=== PATIENT | male | born 1950 | race Caucasian/White ===

== ENCOUNTER 2018-12-07 13:04 | Inpatient (IN) | payer OTHER ==
[~2018-12-07] VITALS: Ht 177.8 cm; Wt 102.1 kg
--- NOTE | ~2018-12-07 | HC ---
[facility] [place] [address] CONSULTATION Name: FÁTIMA AYALA Room #: 350-P [facility] IN M.R.#: [id number] Admission: 12/07/18 ������������������ Attend Phys: Nidhi Browne Discharge: ������������������ Date of : 54 Report #: [id number] THIS REPORT FOR: //name// CC: Lalo Jeffries HISTORY OF PRESENT ILLNESS: The patient is a 68-year-old male well known to myself, the patient of Dr. Pankaj Jeffries, comes in yesterday with an onset of chest discomfort, a band-like sensation radiating to right side of his neck and some shortness of breath. This had occurred at rest. He does not have documented coronary artery disease and I follow him predominantly for paroxysmal AFib, hypertension, and hypercholesterolemia. History of underlying moderate alcohol use, which may have played a role with AFib; although, this has been tampered somewhat. He does note progressive fatigue for the last month or two. The notes an increased shortness of breath over the last few weeks. Not terribly active. Does not regularly exercise. He does maintain anticoagulation with DOAC, Eliquis 5 b.i.d. Other medications were atorvastatin 20, diltiazem 240, olmesartan 40, omeprazole and Ultram as needed. No syncope or presyncope. The troponins are negative. There are nonspecific EKG changes here. The story does sound very suspicious for angina. Prior tobacco user. PAST MEDICAL HISTORY: Positive for paroxysmal AFib, hypertension, reflux, hypercholesterolemia, and moderate alcohol use. SOCIAL HISTORY: He is . Prior tobacco. Moderately heavy alcohol by history. He still works. Moderate amount of caffeine on a daily basis. Only surgery was rotator cuff. ALLERGIES: No known drug allergies. REVIEW OF SYSTEMS: Negative except for stated above and some nocturia. LABORATORY DATA: Sodium is 136, potassium 4.0, and creatinine 1.1. Troponins are negative. SGOT is 45. Lipids have been; they were not repeated here. Troponin is negative. H and H is 14 and 43. Chest x-ray, no acute process, borderline cardiomegaly. PHYSICAL EXAMINATION: VITAL SIGNS: Blood pressure is 140/80 and pulse 60. HEENT: Eyes reveal xanthelasmas. Pharynx is clear. NECK: Shows preserved upstrokes without JVD or bruits. LUNGS: Slight prolonged expiratory phase, but clear. CARDIAC: Regular rate and rhythm, S1, S2. ABDOMEN: Soft, nontender. EXTREMITIES: Reveal no edema. Distal pulses diminished, but intact. NEUROLOGIC: Nonfocal. SKIN: Warm and dry without xanthoma or ulcer. MUSCULOSKELETAL: Mild arthritic changes are noted. I did not ambulate him. [facility] [address] [place] [address] CONSULTATION Name: FÁTIMA AYALA Room #: 350-P [facility] IN M.R.#: [id number] Admission: 12/07/18 ������������������ Attend Phys: Nidhi Browne Discharge: ������������������ Date of : 54 Report #: [id number] ASSESSMENT: 1. Chest pain, suspect unstable angina. 2. Hypertension. 3. Hypercholesterolemia. 4. Paroxysmal atrial fibrillation. RECOMMENDATIONS AND PLAN: We have held anticoagulation since yesterday. I would proceed to the catheterization lab for right and left heart catheterization as his dyspnea and shortness of breath is also playing a role. There has been no recent travel to suggest any potential for PE. There has been no lower extremity swelling. I discussed this above with the patient and his . Dr. Jeffries is also in agreement. We will continue to hold anticoagulation and proceed to the carpenter labor supervisor in the a.m. Risks, benefits, alternatives were discussed. ��������������������������������������������� ���������������������������������������� By: ��������������������������������������������� 1059 1526 Carl Burns MD, FACC /nt
--- NOTE | ~2018-12-07 | H ---
[facility] [place] [address] HISTORY AND PHYSICAL Name: FÁTIMA AYALA Room #: 350-P ADM IN .R.#: [id number] Admission: 12/07/18 ������������������ Attend Phys: Nidhi Browne Discharge: ������������������ Date of : 54 Report #: [id number] THIS REPORT FOR: //name// CC: Lalo Jeffries DATE OF SERVICE: 12/07/2018 CHIEF COMPLAINT: A 68-year-old male with tightness of the chest and shortness of air. HISTORY OF PRESENT ILLNESS: This is a patient with a marked change in his exercise tolerance over the last 48 hours with marked increase in shortness of breath with small short distance of walking along with intermittent chest tightness and some of these symptoms have occurred at rest. He also had some associated nausea. PAST MEDICAL HISTORY: Noteworthy for atrial fibrillation. PAST MEDICAL HISTORY: Shoulder surgery on the right. He has had a previous sleep study that confirmed obstructive sleep apnea and uses CPAP. MEDICATIONS LIST: Includes aspirin, atorvastatin, Cardizem, Benicar, Prilosec, Eliquis, and Ultram. ALLERGIES: No known drug allergies. FAMILY HISTORY: Noncontributory. SOCIAL HISTORY: He is fully active. No smoking at this time. Social alcohol intake. REVIEW OF SYSTEMS: Otherwise negative. PHYSICAL EXAMINATION: GENERAL: Shows him to be in no distress. His is at the bedside. He is having no symptoms at this time. HEENT: Otherwise negative. NECK: Supple without thyromegaly or adenopathy. CHEST: Clear. CARDIOVASCULAR: Showed regular rate and rhythm without murmur. ABDOMEN: Soft and nontender without hepatosplenomegaly. EXTREMITIES: Negative. NEUROLOGIC: Normal. LABORATORY DATA: Laboratory parameters showed no evidence of myocardial infarction. [facility] [address] [place] [address] HISTORY AND PHYSICAL Name: FÁTIMA AYALA Room #: 350-P ADM IN .R.#: [id number] Admission: 12/07/18 ������������������ Attend Phys: Nidhi Browne Discharge: ������������������ Date of : 54 Report #: [id number] ASSESSMENT AND PLAN: 1. This is a patient with symptoms suggesting unstable angina. There probably is a component of anxiety associated with this. At this point, I do not think this is a pulmonary situation and we will need to make sure that we evaluate for unstable angina, and at this point, I favor heart catheterization. 2. Paroxysmal atrial fibrillation with underlying anticoagulation. 3. Gastroesophageal reflux disease. 4. Anxiety. ��������������������������������������������� ���������������������������������������� By: ��������������������������������������������� 0724 0755 Lalo Jeffries MD /nt
[~2018-12-07 13:04] MED LIST: ACIPHEX 20 MG T20 MG PO; ASPIRIN81 M2 PO; BENICAR20 MG PO; CARDIZEM CD240 MG PO; ELIQUIS5 MG PO; LIPITOR 20 MG T20 M1 PO; PAROXETINE HCL20 MG PO; PINDOLOL PO; PREDNISONE 10 M10 MG PO; PRILOSEC; PRILOSEC OTC20 MG PO; SAVAYSA30 MG PO; TENORMIN25 MG PO; TENORMIN50 MG PO
[2018-12-07 13:05] VITALS: BP 149/80
[2018-12-07 13:21] LABS: ABSOLUTE NEUTROPHILS 3.3 thou/uL (1.4-8.2); BASOPHILS 0.5 % (0.0-2.0); EOSINOPHILS 0.7 % (0.0-3.0); HEMATOCRIT 43.6 % (42.0-52.0); HEMOGLOBIN 14.9 gm/dL (14.0-18.0); LYMPHOCYTES 28.7 % (24.0-44.0); MCH 33.2 pg (26.0-34.0); MCHC 34.2 g/dL (28.0-37.0); MCV 96.9 fL (80.0-100.0); MONOCYTES 11.3 % (1.0-8.0); PLATELET COUNT 205 thou/uL (150-400); POLYS 58.8 % (36.0-66.0); RDW 13.8 % (10.5-14.5); WBC 5.7 thou/uL (4.0-11.0)
[2018-12-07 13:33] LABS: APTT 32.9 Seconds (24.5-32.8); PROTIME 10.3 Seconds (9.3-11.4)
[2018-12-07 13:42] LABS: ALBUMIN 3.7 g/dL (3.4-5.0); ANION GAP 11 mmol/L (7-16); BUN 10 mg/dL (7-18); CALCIUM 9.4 mg/dL (8.5-10.1); CHLORIDE 102 mmol/L (98-107); CO2 23 mmol/L (21-32); CREATININE 1.1 mg/dL (0.7-1.3); MAGNESIUM 2.1 mg/dL (1.8-2.4); SGOT 45 U/L (15-37); SGPT 40 U/L (30-65); SODIUM 136 mmol/L (136-145); TOTAL BILIRUBIN 0.4 mg/dL (<0.1-1.0); TROPONIN-I <0.06 ng/mL (<0.06)
[2018-12-07 13:49] LABS: GLUCOSE 91 mg/dL (74-106)
[2018-12-07] MEDS ORDERED: ULTRAM 50MG TAB50 MG PO (13:49)
[2018-12-07 16:03] VITALS: BP 135/75
[2018-12-07 16:08] VITALS: BP 143/95
[2018-12-07 16:29] LABS: AMP/METHAMP Negative (Negative); BARBITURATES Negative (Negative); BENZODIAZEPINES Negative (Negative); COCAINE Negative (Negative); METHADONE Negative (Negative); OPIATES POSITIVE (Negative); PCP Negative (Negative)
[2018-12-07 17:07] VITALS: BP 147/66
--- NOTE | 2018-12-07 18:24 | NUR ---
PATIENT ADMITTED TO ROOM AT THIS TIME. HE IS ALERT ORIENTED X4. DOES NOT SEEM TO BE IN PAIN OR DISTRESS. HE DID STATE HE HAD NAUSEA AND PRN ZOFRAN ADMINISTERED. IT WAS EFFECTIVE. ORIENTED TO ROOM. WILL CONT WITH PLAN OF CARE.
[2018-12-07 19:20] VITALS: BP 131/64
[2018-12-08] VITALS: BP 140/77
[2018-12-08 04:00] VITALS: BP 146/85
--- NOTE | 2018-12-08 04:27 | NUR ---
Patient making slow progress towards outcome goals. Vital signs and rhythm stable. Most recent EKG and Troponin normal. IVfluids infusing. Up adlib without difficulty.
[2018-12-08 07:26] VITALS: BP 141/83
[2018-12-08 11:11] VITALS: BP 150/77
--- NOTE | 2018-12-08 13:44 | EKG ---
[place] [address] [address] [facility] [place] [address] ELECTROCARDIOGRAM REPORT Name: SEBASTIÁN AYALA Room #: 350-P ADM IN M.R.#: [id number] ������������������ Admission: 12/07/18 ������������������ Attend Phys: Nidhi Browne Discharge: ������������������ Date of : 54 Report #: [id number] ����������������������������������������������������������������� [id number] THIS REPORT FOR: //name// [facility] ED Test Date: 2018-12-07 Test Time: 13:04:18 Pat Name: SEBASTIÁN AYALA Department: Room: 350 Gender: M Handwriting Expert: ODALIS : 1950 Requested By: Sebastián Agrawal Order Number: [id number] MD: Derek Gilmore Measurements Intervals [place] Rate: 62 P: 37 [place]: 154 QRS: 11 QRSD: 102 T: 6 QT: 407 QTc: 414 Interpretive Statements Sinus rhythm Normal tracing No previous ECG available for comparison Electronically Signed On 12-08-2018 13:44:11 CDT by Derek Gilmore [email or web address] ��������������������������������������������� <ELECTRONICALLY SIGNED> ���������������������������������������� By: Derek Gilmore MD, [facility] ��������������������������������������������� 12/08/18 1344 1304 1304 Derek Gilmore MD, FACC /EPI
--- NOTE | 2018-12-08 13:50 | EKG ---
[place] [address] [address] [facility] [place] [address] ELECTROCARDIOGRAM REPORT Name: FÁTIMA AYALA Room #: 350-P ADM IN M.R.#: [id number] ������������������ Admission: 12/07/18 ������������������ Attend Phys: Nidhi Browne Discharge: ������������������ Date of : 54 Report #: [id number] ����������������������������������������������������������������� [id number] THIS REPORT FOR: //name// [facility] Test Date: 2018-12-07 Test Time: 18:10:55 Pat Name: FÁTIMA AYALA Department: Room: 350 P Gender: M Casting Supervisor: CHRISTIANO : 1950 Requested By: Carl Burns Order Number: [id number] MD: Derek Gilmore Measurements Intervals [place] Rate: 56 P: 43 [place]: 162 QRS: 25 QRSD: 111 T: -1 QT: 440 QTc: 425 Interpretive Statements Sinus rhythm Abnormal R-wave progression, early transition Nonspecific ST and T wave abnormality No previous ECG available for comparison Electronically Signed On 12-08-2018 13:50:01 CDT by Derek Gilmore [email or web address] ��������������������������������������������� <ELECTRONICALLY SIGNED> ���������������������������������������� By: Derek Gilmore MD, [facility] ��������������������������������������������� 12/08/18 1350 1810 09 Derek Gilmore MD, [facility] /EPI
--- NOTE | 2018-12-08 13:59 | EKG ---
[place] [address] [address] [employer] [facility] [place] [address] ELECTROCARDIOGRAM REPORT Name: FÁTIMA AYALA Room #: 350-P ADM IN M.R.#: [id number] ������������������ Admission: 12/07/18 ������������������ Attend Phys: Nidhi Browne Discharge: ������������������ Date of : 54 Report #: [id number] ����������������������������������������������������������������� [id number] THIS REPORT FOR: //name// [facility] Test Date: 2018-12-08 Test Time: 07:37:04 Pat Name: FÁTIMA AYALA Department: Room: 350 P Gender: M Hyperbaric Tech: MADDIE : 1950 Requested By: Carl Burns Order Number: [id number] MD: Derek Gilmore Measurements Intervals [place] Rate: 55 P: 30 [place]: 168 QRS: 7 QRSD: 102 T: -11 QT: 422 QTc: 404 Interpretive Statements Sinus bradycardia Abnormal R-wave progression, early transition Baseline wander in lead(s) V3 No previous ECG available for comparison Electronically Signed On 12-08-2018 13:59:11 CDT by Derek Gilmore [email or web address] ��������������������������������������������� <ELECTRONICALLY SIGNED> ���������������������������������������� By: Derek Gilmore MD, [facility] ��������������������������������������������� 12/08/18 1359 6 Derek Gilmore MD, [facility] /EPI
[2018-12-08 16:05] VITALS: BP 134/77
--- NOTE | 2018-12-08 16:22 | NUR ---
PATIENT CONT TO REST IN ROOM AT THIS TIME. WILL BE HAVING CATH DONE IN AM. SPOKE WITH CARDIOLOGY AND EDUCATION PROVIDED. HE HAS DENIED ANY PAIN AT THIS TIME. STATES THE PAIN IS MILD AND TOLERABLE WITH NO NEED FOR MEDICATION. UP AD CARMEN TO BATHROOM. RESPIRATIONS NON LABORED. WILL CONT WITH PLAN OF CARE.
[2018-12-08 19:30] VITALS: BP 144/74
[2018-12-09 04:00] VITALS: BP 128/69
--- NOTE | 2018-12-09 05:48 | NUR ---
Patient progressing towardfs outcome goals. Vital signs and rhythm stable No c/o nausea. NPO after MN for heart cath. Consent secured by previous nurse. Patient denies any questions at this time. States procedure explained by Dr Burns.IVfluids infusing.
[2018-12-09 09:27] VITALS: BP 136/91
[2018-12-09 11:33] VITALS: BP 147/84
[2018-12-09 16:26] VITALS: BP 147/84
--- NOTE | 2018-12-09 16:34 | NUR ---
ASSUMED CAR EOF PT AT 0700. PT AOX4 ASYMPTOMATIC. DENIES CHEST PAIN. HEART CATH UNREMARKABLE. WAITING ON DISCHARGE ORDERS.
--- NOTE | 2018-12-13 15:31 | CATHLAB ---
[facility] [place] [address] INVASIVE PROCEDURE REPORT Name: FÁTIMA AYALA Room #: 350-P [facility]#: [id number] ������������� Admission: 12/07/18 ������������� Attend Phys: Lalo Knapp Discharge: ��� 12/09/18 ������������� ��� Date of : 54 Date of Service: 12/13/18 1530 �� Report #: [id number] �������� ��������������������������������������������[id number] THIS REPORT FOR: //name// APPROVED REPORT Study performed: 12/09/2018 07:13:10 Patient Details Patient Status: Out-Patient Room #: The patient is a 68 year-old male Event Personnel Carl Burns Multiple Resaw Operator, Bird Cantu RN, Marcelle Pacheco Monitor, Yoav August RTR Scrub Procedures Performed Art Access - R femoral artery* Herbie Access - R femoral vein Right and Left Heart Cath Lt Vent/Cors/Grafts [id number] RLLVCORCAB Aortogram Abdominal Peripheral Angio [id number] Indication Chest pain Procedure Narrative The Right Groin^ was infiltrated with 1% Lidocaine subcutaneous anesthesia. Cardiac outputs were obtained by the Thermal Dilution method. A PINNACLE 6FR Sheath #[id number] sheath was inserted into the RFA 6F^. Coronary angiography was performed using coronary diagnostic catheters. The right coronary system was accessed and visualized with a jr4 catheter. The left coronary system was accessed and visualized with a jl4 catheter. The left ventricle was accessed and visualized with a str. pig catheter. Left ventriculogram was performed in 30 degree projection. Closure device was deployed with a Fr 6f Mynx. Intraoperative Conscious Sedation Sedation start time: 757 Case end Time: 834 Fentanyl 100.0 mcg Versed 2 mg Fluoro Time: 4.18 minutes Dose: DAP 7514.20 cGycm2 Contrast Type and Amount: Omnipaque 90 ml Hemodynamics [facility] [email or web address] [address] INVASIVE PROCEDURE REPORT Name: FÁTIMA AYALA Room #: [address] [place] [address].#: [id number] ������������� Admission: 12/07/18 ������������� Attend Phys: Lalo Knapp Discharge: ��� 12/09/18 ������������� ��� Date of : 54 Date of Service: 12/13/18 1530 �� Report #: [id number] �������� ��������������������������������������������[id number] The right atrial mean pressure is 10 mmHg. The right ventricular pressure is 15 mmHg. The pulmonary artery pressure is 38/14 mmHg with a mean of 23 mmHg. The mean pulmonary capillary wedge pressure is 20 mmHg. The left ventricular pressure is 155/15 mmHg with a mean of mmHg. The cardiac output using thermo method is 6.83 L/min. The cardiac index using thermo method is 3.11 L/min/m2. Conclusion #1 normal left ventricular size and systolic function EF 60% #2 abdominal aortogram reveals no evidence of aneurysm single bilateral renal arteries appear widely patent #3 coronary anatomy reveals essentially a codominant system. There is mild plaquing in all 3 vessels no significant occlusive disease is noted #4 assessment right heart catheterization with cardiac output by thermodilution. See above hemodynamics. Recommendations and plan: Continue aggressive risk factor modification. No indication for coronary intervention. No significant elevation of pulmonary pressures. ��������������������������������������������� <ELECTRONICALLY SIGNED> ���������������������������������������� By: Carl Burns MD, FACC ��������������������������������������������� 12/13/18 1530 1530 1530 Carl Burns MD, FACC /INF
== END 2018-12-09 17:09 | disposition home or self-care (01) | DRG 287 ==
LOC: ER 13:04 → EROBS 14:55 → 3W 14:55 → ENTRNSPT 12-09 16:33 → 3W 12-09 17:09
PROVIDERS: Emergency Medicine; ADMIT Internal Medicine
PROC: B2151ZZ Fluoroscopy of Left Heart using Low Osmolar Contrast (ICD-10-PCS; principal; 2018-12-08)
PROC: 4A023N7 Measurement of Cardiac Sampling and Pressure, Left Heart, Percutaneous Approach (ICD-10-PCS; principal; 2018-12-08)
PROC: B4101ZZ Fluoroscopy of Abdominal Aorta using Low Osmolar Contrast (ICD-10-PCS; principal; 2018-12-08)
PROC: B2111ZZ Fluoroscopy of Multiple Coronary Arteries using Low Osmolar Contrast (ICD-10-PCS; principal; 2018-12-08)
DX: R07.89 Other chest pain (principal); K21.9 Gastro-esophageal reflux disease without esophagitis; E66.9 Obesity, unspecified; I48.0 Paroxysmal atrial fibrillation; I10 Essential (primary) hypertension; E78.00 Pure hypercholesterolemia, unspecified; G47.33 Obstructive sleep apnea (adult) (pediatric); F41.9 Anxiety disorder, unspecified; E78.5 Hyperlipidemia, unspecified; Z79.01 Long term (current) use of anticoagulants; Z87.891 Personal history of nicotine dependence; Z99.81 Dependence on supplemental oxygen; Z79.82 Long term (current) use of aspirin; Z79.899 Other long term (current) drug therapy; Z68.32 Body mass index [BMI] 32.0-32.9, adult
CPT/HCPCS: 10879

== ENCOUNTER → 2019-07-02 | Outpatient (CLI) | payer OTHER ==
[~2019-07-02] MED LIST changes: +ULTRAM 50MG TAB50 MG PO
== END ==
LOC: SJCVC 11:31
DX: I48.91 Unspecified atrial fibrillation (principal); R94.31 Abnormal electrocardiogram [ECG] [EKG]; I25.10 Atherosclerotic heart disease of native coronary artery without angina pectoris; E78.00 Pure hypercholesterolemia, unspecified; I10 Essential (primary) hypertension; D68.59 Other primary thrombophilia; G47.33 Obstructive sleep apnea (adult) (pediatric); K21.9 Gastro-esophageal reflux disease without esophagitis; Z87.891 Personal history of nicotine dependence; Z79.899 Other long term (current) drug therapy; Z99.89 Dependence on other enabling machines and devices

== ENCOUNTER → 2020-01-07 | Outpatient (CLI) | payer OTHER | LOC: SJCVCIMAG 10:47 | PROVIDERS: ATTEND Internal Medicine Cardiovascular Disease | DX: I48.0 Paroxysmal atrial fibrillation (principal); G47.33 Obstructive sleep apnea (adult) (pediatric); D68.59 Other primary thrombophilia; I10 Essential (primary) hypertension; E78.5 Hyperlipidemia, unspecified; K21.9 Gastro-esophageal reflux disease without esophagitis; Z79.899 Other long term (current) drug therapy; Z87.891 Personal history of nicotine dependence; Z99.89 Dependence on other enabling machines and devices ==

== ENCOUNTER → 2020-08-27 | Outpatient (CLI) | payer OTHER | LOC: SJCVC 10:21 | PROVIDERS: ATTEND Internal Medicine Cardiovascular Disease | DX: R94.31 Abnormal electrocardiogram [ECG] [EKG] (principal); G47.33 Obstructive sleep apnea (adult) (pediatric); K21.9 Gastro-esophageal reflux disease without esophagitis; D68.59 Other primary thrombophilia; I48.0 Paroxysmal atrial fibrillation; R42 Dizziness and giddiness; I48.91 Unspecified atrial fibrillation; F41.9 Anxiety disorder, unspecified; Z99.89 Dependence on other enabling machines and devices; Z79.899 Other long term (current) drug therapy; Z87.891 Personal history of nicotine dependence; Z72.89 Other problems related to lifestyle ==

== ENCOUNTER 2020-09-13 10:48 | Emergency (ER) | payer OTHER ==
[~2020-09-13] VITALS: Ht 177.8 cm; Wt 104.3 kg
[2020-09-13] MEDS ORDERED: DILTIAZEM 24HR360 M1 PO (11:18)
[2020-09-13] MEDS ORDERED: CLONAZEPAM 0.50.5 M1 PO (11:19)
[2020-09-13 11:26] LABS: ABSOLUTE NEUTROPHILS 4.8 thou/uL (1.4-8.2); BASOPHILS 0.7 % (0.0-2.0); EOSINOPHILS 0.7 % (0.0-3.0); HEMATOCRIT 43.8 % (42.0-52.0); HEMOGLOBIN 14.8 gm/dL (14.0-18.0); MCH 33.7 pg (26.0-34.0); MCHC 33.7 g/dL (28.0-37.0); MCV 100.1 fL (80.0-100.0); MONOCYTES 8.9 % (1.0-8.0); PLATELET COUNT 206 thou/uL (150-400); POLYS 70.7 % (36.0-66.0); RBC 4.38 mil/uL (4.50-6.00); RDW 13.2 % (10.5-14.5); WBC 6.7 thou/uL (4.0-11.0)
[2020-09-13 11:36] LABS: ANION GAP 11 mmol/L (7-16); BUN 12 mg/dL (7-18); CHLORIDE 104 mmol/L (98-107); CO2 25 mmol/L (21-32); CREATININE 1.2 mg/dL (0.7-1.3); GLUCOSE 100 mg/dL (74-106); POTASSIUM 4.4 mmol/L (3.5-5.1); SODIUM 140 mmol/L (136-145)
[2020-09-13 11:45] LABS: TROPONIN-I <0.06 ng/mL (<0.06)
[2020-09-13 12:46] VITALS: BP 129/70
--- NOTE | 2020-09-14 06:58 | EKG ---
[place] [address] [address] [facility] [place] [address] ELECTROCARDIOGRAM REPORT Name: FÁTIMA AYALA Room #: [facility] [id number] Admission: 09/13/20 Attend Phys: Discharge: 09/13/20 Date of : 54 Report #: [id number] [facility] ED Test Date: 2020-09-13 Test Time: 10:57:03 Pat Name: FÁTIMA AYALA Department: Room: Gender: M Eeg Tech: VIVEK : 1950 Requested By: Renny Rowan Order Number: [id number] MD: Renny Crowe Measurements Intervals [employer] Rate: 60 P: 22 [place]: 158 QRS: 10 QRSD: 97 T: -10 QT: 413 QTc: 413 Interpretive Statements Sinus rhythm Low voltage, precordial leads Borderline T abnormalities, inferior leads Baseline wander in lead(s) V4,V5 Compared to ECG 12/08/2018 07:37:04 Low QRS voltage now present T-wave abnormality now present Sinus bradycardia no longer present Electronically Signed On 09-14-2020 6:58:19 CDT by Renny Crowe [email or web address] <ELECTRONICALLY SIGNED> By: Renny Crowe MD, FAC 09/14/20 0658 1057 1057 Renny Crowe MD, [facility] /EPI
== END 2020-09-13 12:53 | disposition home or self-care (01) ==
LOC: ER 10:48
PROVIDERS: Emergency Medicine
DX: R06.00 Dyspnea, unspecified (principal); K21.9 Gastro-esophageal reflux disease without esophagitis; I48.91 Unspecified atrial fibrillation; Z79.899 Other long term (current) drug therapy

== ENCOUNTER → 2020-09-28 | Outpatient (CLI) | payer OTHER ==
[~2020-09-28] MED LIST changes: +CLONAZEPAM 0.50.5 M1 PO; +DILTIAZEM 24HR360 M1 PO
== END ==
LOC: SJCVCIMAG 08:50
PROVIDERS: ATTEND Internal Medicine Cardiovascular Disease
DX: I49.1 Atrial premature depolarization (principal); R06.00 Dyspnea, unspecified; I48.0 Paroxysmal atrial fibrillation; E66.9 Obesity, unspecified; R53.83 Other fatigue

== ENCOUNTER → 2021-04-06 | Outpatient (CLI) | payer OTHER | LOC: SJCVC 15:00 | PROVIDERS: ATTEND Internal Medicine Cardiovascular Disease | DX: R94.31 Abnormal electrocardiogram [ECG] [EKG] (principal); I25.10 Atherosclerotic heart disease of native coronary artery without angina pectoris; I10 Essential (primary) hypertension; E78.00 Pure hypercholesterolemia, unspecified; G47.33 Obstructive sleep apnea (adult) (pediatric); I48.91 Unspecified atrial fibrillation; D68.59 Other primary thrombophilia; E78.5 Hyperlipidemia, unspecified; F41.9 Anxiety disorder, unspecified; G47.30 Sleep apnea, unspecified; K21.9 Gastro-esophageal reflux disease without esophagitis; Z99.89 Dependence on other enabling machines and devices; Z87.891 Personal history of nicotine dependence; Z79.899 Other long term (current) drug therapy; Z72.89 Other problems related to lifestyle ==